=== PATIENT | female | born 1975 | race Caucasian/White ===

== ENCOUNTER 2017-02-23 15:18 | Emergency (ER) | payer OTHER ==
[2017-02-23 16:01] VITALS: BP 146/87; PULSE 103; TEMP 99.1; BMI 33.6
--- NOTE | 2017-02-23 16:02 | PDOC ---
Rapid Medical Evaluation Chief Complaint: Respiratory Time Seen by Provider: 02/23/17 16:00 Medical Evaluation: Allergies Allergy/AdvReac Type Severity Reaction Status Date / Time No Known Allergies Allergy Verified 04/24/15 10:03 02/23/17 16:00 I have performed a brief in-person evaluation of this patient. The patient presents with a chief complaint of non productive coughing, chest discomfort and shortness of breath since Thursday. Also report pain with swallowing. Took medication this am Pertinent physical exam findings: NAD unlabored breathing, lungs clear bilaterally rapid heart rate no pedal edema I have ordered the following: ekg chest xray flu swab labs The patient will proceed to the ED for further evaluation.
[2017-02-23 16:51] LABS: INR 1.05 (0.82-1.09); PROTHROMBIN TIME (PATIENT) 11.9 SEC (9.98-11.88)
[2017-02-23 16:54] LABS: ACTIVATED PTT 34.6 SECONDS (26.9-34.4)
[2017-02-23 16:57] LABS: ALBUMIN 4.1 g/dl (3.4-5.0); ANION GAP 11 (8-16); BLOOD UREA NITROGEN 12 mg/dL (7-18); CALCIUM 8.3 mg/dL (8.5-10.1); CHLORIDE 99 mmol/L (98-107); CO2 27 mmol/L (21-32); GLUCOSE,RANDOM 83 mg/dL (74-106); POTASSIUM 3.5 mmol/L (3.5-5.1); SODIUM 137 mmol/L (136-145)
[2017-02-23 17:02] LABS: ALK PHOS 116 U/L (45-117); BILIRUBIN,DIRECT < 0.2 mg/dL (0.0-0.2); BILIRUBIN,TOTAL 0.3 mg/dL (0.2-1.0); CREATININE 0.6 mg/dL (0.55-1.02); SGOT/AST 35 U/L (15-37); SGPT/ALT 51 U/L (12-78)
[2017-02-23] MEDS ORDERED: ACETAMINOPHEN 325 MG TABLET (FP) PO ONE (17:46)
--- NOTE | 2017-02-23 17:52 | PDOC ---
History of Present Illness - General Chief Complaint: Respiratory Stated Complaint: CHEST PAIN Time Seen by Provider: 02/23/17 16:00 History Source: Patient Exam Limitations: No Limitations - History of Present Illness Initial Comments: CHIEF COMPLAINT: 41 y/o tachycardic female with PMH HTN c/o body aches, fever, chills, sore throat and dry cough x 3 days. 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 She has been taking tylenol and motrin. He denies BIRD, neck pain, earache, CP, SOB, abd pain, n/v/ d. Vital signs on arrival are notable for pulse of 103 with temp of 99.1. REVIEW OF SYSTEMS: GENERAL/CONSTITUTIONAL: + fever/chills. +body aches. No weakness. No weight change. HEAD, EYES, EARS, NOSE AND THROAT: No change in vision. No ear pain or discharge. +sore throat CARDIOVASCULAR: No chest pain or shortness of breath. RESPIRATORY: +dry cough. No wheezing, or hemoptysis. GASTROINTESTINAL: No abd pain, nausea, vomiting, diarrhea. GENITOURINARY: No dysuria, frequency, or change in urination. MUSCULOSKELETAL: No joint or muscle swelling or pain. No neck or back pain. SKIN: No rash or easy bruising. NEUROLOGIC: No headache, vertigo, loss of consciousness, or loss of sensation. PHYSICAL EXAM: GENERAL: The patient is awake, alert, and fully oriented, non toxic but ill appearing. Intermittent dry cough. HEAD: Normal with no signs of trauma. ENT: Pupils equal, round and reactive to light, extraocular movements intact, sclera anicteric, conjunctiva clear. Posterior pharynx erythematous without tonsillar edema or exudate. LUNGS: Clear to auscultation bilaterally. Normal excursion. No respiratory distress or use of accessory muscles. CV: RRR, S1/S2, no MRG. Cap refill < 2 sec. ABDOMEN: Soft, non-distended, non-tender even to deep palpation, no hepatomegaly or splenomegaly, no masses. EXTREMITIES: Normal range of motion, no edema. NEUROLOGICAL: Normal speech, normal gait. CN II-XII grossly intact. PSYCH: Normal mood, normal affect. SKIN: Warm, dry, normal turgor, no rashes or lesions noted. Past History - Past Medical History Allergies/Adverse Reactions: Allergies Allergy/AdvReac Type Severity Reaction Status Date / Time No Known Allergies Allergy Verified 04/24/15 10:03 Home Medications: Ambulatory Orders Ibuprofen [Motrin -] 800 mg PO TID #30 tablet 04/24/15 Oseltamivir Phosphate [Tamiflu] 75 mg PO BID #10 capsule 02/23/17 - Suicide/Smoking/Psychosocial Hx Smoking History: Never smoked Hx Alcohol Use: No Drug/Substance Use Hx: No *Physical Exam - Vital Signs Last Vital Signs Temp Pulse Resp BP Pulse Ox 99.1 F 103 H 20 146/87 99 02/23/17 15:57 02/23/17 15:57 02/23/17 15:57 02/23/17 15:57 02/23/17 15:57 ED Treatment Course - LABORATORY CBC & Chemistry Diagram: 02/23/17 16:15 - ADDITIONAL ORDERS Additional order review: Laboratory Results 02/23/17 02/23/17 16:15 16:15 PT with INR 11.90 H INR 1.05 PTT (Actin FS) 34.6 H Sodium 137 Potassium 3.5 Chloride 99 Carbon Dioxide 27 Anion Gap 11 BUN 12 Creatinine 0.6 Creat Clearance w eGFR > 60 Random Glucose 83 Calcium 8.3 L Total Bilirubin 0.3 Direct Bilirubin < 0.2 AST 35 ALT 51 Alkaline Phosphatase 116 Creatine Kinase 124 Troponin I < 0.02 Total Protein 8.0 Albumin 4.1 02/23/17 16:15 Influenza Types A,B Antigen (LOUISE) - Final Nasopharyngeal Swab - Final Medical Decision Making - Medical Decision Making A/P: 41 y/o female with flu like symptoms. Flu swab, labs and EKG ordered in triage. I will give her tylenol. Flu B - positive Patient given results. Most likely tachycardic secondary to fever. Will give rx for tamiflu. encouraged plenty of fluids, continued tylenol and motrin for fever, tamiflu and rest. Will give work note. Instructed her to return to the ER with any worsening or concerning symptoms. The patient verbalizes understanding of all instructions, has no further questions and is awaiting discharge. *DC/Admit/Observation/Transfer Diagnosis at time of Disposition: Influenza B - Discharge Dispostion Disposition: HOME Condition at time of disposition: Stable - Prescriptions Prescriptions: Oseltamivir Phosphate [Tamiflu] 75 mg PO BID #10 capsule - Referrals Referrals: Candace Garrison [Primary Care Provider] - - Patient Instructions Printed Discharge Instructions: DI for Influenza -- Adult Additional Instructions: Discharge instructions: -You have Influenza B -A prescription for Tamiflu was sent to your pharmacy; please take entire 5 days -Alternate every 3 hours between 650mg of Tylenol and 600mg of Motrin for fever and body aches until symptoms improve -Drink plenty of liquids -Get lots of rest -Return to the ER with any worsening or concerning symptoms Instrucciones de descarga: -Tienes Influenza B - Lisette receta para Tamiflu fue enviada a avila farmacia; por favor tmate 5 perez enteros -Alterna cada 3 horas entre 650 mg de Tylenol y 600 mg de Motrin para la fiebre y los candi corporales hasta que mejoren los sntomas -Rosalba muchos lquidos -Descansa mucho -Volver a la shanell de urgencias con cualquier empeoramiento o sntomas - Post Discharge Activity Forms/Work/School Notes: Back to Work
[2017-02-23] MEDS ORDERED: ACETAMINOPHEN 325 MG TABLET (FP) ONE (18:24)
--- NOTE | 2017-02-24 10:51 | EKG ---
Test Reason : Blood Pressure : / mmHG Vent. Rate : 097 BPM Atrial Rate : 097 BPM P-R Int : 152 ms QRS Dur : 082 ms QT Int : 354 ms P-R-T Axes : 013 004 049 degrees QTc Int : 449 ms NORMAL SINUS RHYTHM NORMAL ECG NO PREVIOUS ECGS AVAILABLE Confirmed by MD Cummings Daniel ([id number]) on 02/24/2017 10:51:06 AM Referred By: Confirmed By:Maxim Cummings MD
== END 2017-02-23 18:22 | disposition home or self-care (01) ==
LOC: JER 15:18
DX: J10.1 Influenza due to other identified influenza virus with other respiratory manifestations (principal)
CPT/HCPCS: 36415; 80053; 80076; 82550; 84484; 85610; 85730; 87804; 93005; 93010; 99282-25

== ENCOUNTER 2018-01-05 23:09 | Emergency (ER) | payer OTHER ==
[2018-01-05 23:13] VITALS: BP 151/98; PULSE 77; TEMP 98.1; BMI 30.7
[2018-01-05 23:28] LABS: URINE APPEARANCE CLOUDY; URINE BILIRUBIN NEGATIVE (<2.0 mg/dL); URINE COLOR YELLOW; URINE GLUCOSE (UA) NEGATIVE (NEGATIVE); URINE KETONE NEGATIVE (NEGATIVE); URINE LEUK ESTERASE 3+ (NEGATIVE); URINE NITRITE NEGATIVE (NEGATIVE); URINE PROTEIN 2+ (NEGATIVE); URINE UROBILINOGEN NEGATIVE mg/dL (0.2-1.0)
[2018-01-05 23:43] LABS: EPI CELLS RARE /HPF (FEW); URINE BACTERIA RARE /hpf (NONE SEEN); URINE MUCUS RARE
[2018-01-06 00:17] LABS: HCG,QUALITATIVE URINE Negative
--- NOTE | 2018-01-06 01:23 | PDOC ---
History of Present Illness <Cara Andersen - Last Filed: 01/06/18 05:19> - History of Present Illness Initial Comments: 01/06/18 02:34 The patient is a a 42 year old female with a history of HTN who presents for evaluation of right flank pain and pain with urination. The patient reports a 1 week history of mild right flank pain. She notes a 3 day history of worsening burning pain with urination prompting her presentation to the ED for further evaluation. She otherwise denies fevers, chills, SOB, chest pain, nausea, vomiting, abdominal pain, or changes with bowel movements. <Maxim Estrada - Last Filed: 01/08/18 08:11> - General Chief Complaint: Urinary Problem Stated Complaint: PAIN Time Seen by Provider: 01/06/18 01:21 Past History <Cara Andersen - Last Filed: 01/06/18 05:19> - Suicide/Smoking/Psychosocial Hx Smoking History: Never smoked Have you smoked in the past 12 months: No Information on smoking cessation initiated: No Hx Alcohol Use: No Drug/Substance Use Hx: No <Maxim Estrada - Last Filed: 01/08/18 08:11> - Past Medical History Allergies/Adverse Reactions: Allergies Allergy/AdvReac Type Severity Reaction Status Date / Time No Known Allergies Allergy Verified 01/05/18 23:13 Home Medications: Ambulatory Orders Ibuprofen [Motrin -] 800 mg PO TID #30 tablet 04/24/15 Oseltamivir Phosphate [Tamiflu] 75 mg PO BID #10 capsule 02/23/17 Cephalexin Monohydrate [Keflex -] 500 mg PO BID #20 capsule 01/06/18 Review of Systems - Review of Systems Comments:: 01/06/18 02:39 Constitutional: No fevers, chills, fatigue, malaise HEENT: No Rhinorrhea, nasal congestion, visual changes Cardiovascular: No chest pain, syncope, palpitations, lightheadedness Respiratory: No Cough, SOB, Hemoptysis, Gastrointestinal: No Abdominal pain, Nausea, Vomiting, Constipation, Diarrhea, Melena Genitourinary: Dysuria, Flank pain. No Frequency, Urgency, Hesitancy, Hematuria , Musculoskeletal: No Myalgia, arthralgia Skin: No rashes, itching, bruising, pallor Neurologic: No Headache, Dizziness, Numbness, Weakness, or Tingling Psychiatric: No Hallucinations. No SI or HI <Maxim Estrada - Last Filed: 01/08/18 08:11> *Physical Exam - Vital Signs Last Vital Signs Temp Pulse Resp BP Pulse Ox 98.1 F 77 16 151/98 100 01/05/18 23:11 01/05/18 23:11 01/05/18 23:11 01/05/18 23:11 01/05/18 23:11 <Cara Andersen - Last Filed: 01/06/18 05:19> - Vital Signs Last Vital Signs Temp Pulse Resp BP Pulse Ox 98.1 F 77 16 151/98 100 01/05/18 23:11 01/05/18 23:11 01/05/18 23:11 01/05/18 23:11 01/05/18 23:11 - Physical Exam Comments: 01/06/18 02:39 General Appearance: Nourished. No Apparent Distress HEENT: No Pharyngeal Erythema, Tonsillar Exudate, Tonsillar Erythema Neck: No Cervical Lymphadenopathy Respiratory/Chest: Lungs Clear, Normal Breath Sounds. No Crackles, Rales, Rhonchi, Wheezing Cardiovascular: Regular Rhythm, Regular Rate. No Murmur, Gallops, Rubs Gastrointestinal/Abdominal: Normal Bowel Sounds, Soft. Mild suprapubic discomfort with palpation. No Guarding, Rebound, Musculoskeletal: Mild R CVA Tenderness. No L CVA Tenderness. Extremity: Normal Capillary Refill Integumentary: Normal Color, Dry, Warm Neurologic: Fully Oriented, Alert, Normal Mood/Affect, Normal Response, <Maxim Estrada - Last Filed: 01/08/18 08:11> Moderate Sedation - Procedure Monitoring Vital Signs: Procedure Monitoring Vital Signs Temperature 98.1 F 01/05/18 23:11 Pulse Rate 77 01/05/18 23:11 Respiratory Rate 16 01/05/18 23:11 Blood Pressure 151/98 01/05/18 23:11 O2 Sat by Pulse Oximetry (%) 100 01/05/18 23:11 <Cara Andersen - Last Filed: 01/06/18 05:19> - Procedure Monitoring Vital Signs: Procedure Monitoring Vital Signs Temperature 98.1 F 01/05/18 23:11 Pulse Rate 77 01/05/18 23:11 Respiratory Rate 16 01/05/18 23:11 Blood Pressure 151/98 01/05/18 23:11 O2 Sat by Pulse Oximetry (%) 100 01/05/18 23:11 <Maxim Estrada - Last Filed: 01/08/18 08:11> ED Treatment Course - LABORATORY CBC & Chemistry Diagram: 01/06/18 03:08 01/06/18 03:08 - ADDITIONAL ORDERS Additional order review: Laboratory Results 01/06/18 01/05/18 03:08 23:15 Sodium 137 Potassium 3.8 Chloride 100 Carbon Dioxide 29 Anion Gap 7 L BUN 25 H Creatinine 0.5 L Creat Clearance w eGFR > 60 Random Glucose 101 Calcium 9.3 Total Bilirubin 0.4 AST 21 ALT 29 Alkaline Phosphatase 133 H Total Protein 7.8 Albumin 3.9 Urine Color Yellow Urine Appearance Cloudy Urine pH 6.0 Ur Specific [place] 1.025 Urine Protein 2+ H Urine Glucose (UA) Negative Urine Ketones Negative Urine Blood 3+ H Urine Nitrite Negative Urine Bilirubin Negative Urine Urobilinogen Negative Ur Leukocyte Esterase 3+ H Urine WBC (Auto) 308 Urine RBC (Auto) 1242 Ur Epithelial Cells Rare Urine Bacteria Rare Urine Mucus Rare Urine HCG, Qual Negative 01/06/18 03:08 RBC 4.55 MCV 87.6 MCHC 35.6 RDW 12.7 MPV 7.7 Neutrophils % 59.1 Lymphocytes % 31.9 Monocytes % 6.6 Eosinophils % 1.8 Basophils % 0.6 - Medications Given in the ED: ED Medications Discontinued Medications Generic Name Dose Route Start Last Admin Trade Name Freq PRN Reason Stop Dose Admin Ceftriaxone Sodium 1 gm/ 100 mls @ 200 mls/hr 01/06/18 02:34 01/06/18 03:19 Dextrose IVPB 01/06/18 03:03 200 mls/hr ONCE ONE Administration Protocol <Cara Andersen - Last Filed: 01/06/18 05:19> - LABORATORY CBC & Chemistry Diagram: 01/06/18 03:08 01/06/18 03:08 - ADDITIONAL ORDERS Additional order review: Laboratory Results 01/05/18 23:15 Urine Color Yellow Urine Appearance Cloudy Urine pH 6.0 Ur Specific [place] 1.025 Urine Protein 2+ H Urine Glucose (UA) Negative Urine Ketones Negative Urine Blood 3+ H Urine Nitrite Negative Urine Bilirubin Negative Urine Urobilinogen Negative Ur Leukocyte Esterase 3+ H Urine WBC (Auto) 308 Urine RBC (Auto) 1242 Ur Epithelial Cells Rare Urine Bacteria Rare Urine Mucus Rare Urine HCG, Qual Negative <Maxim Estrada - Last Filed: 01/08/18 08:11> Medical Decision Making - Medical Decision Making 01/06/18 02:40 The patient is a a 42 year old female with a history of HTN who presents for evaluation of right flank pain and pain with urination. Differential includes but is not limited to: Pyelonephritis, UTI, Kidney stone, Infectious, Metabolic Derangement. Given the patient's history and physical exam, we will obtain a cbc, cmp, renal CT to evaluate further. UA obtained in triage demonstrated positive leuk esterase with elevated wbc and rbcs. We will treat the patient with ceftriaxone and continue to monitor and reassess while here in the ED. 01/06/18 04:10 CBC, cmp are unremarkable. Renal CT demonstrates cystitis without kidney stones as preliminarily read by our [facility] receptionist radiologist. The patient appears clinically well on exam. We are comfortable discharging the patient home on keflex with primary care provider follow up. We discussed the results, plan, and return precautions with the patient who voiced understanding and is agreeable with the plan. <Maxim Estrada - Last Filed: 01/08/18 08:11> *DC/Admit/Observation/Transfer <Cara Andersen - Last Filed: 01/06/18 05:19> - Discharge Dispostion Decision to Admit order: No <Maxim Estrada - Last Filed: 01/08/18 08:11> Diagnosis at time of Disposition: UTI (urinary tract infection) Qualifiers: Urinary tract infection type: site unspecified Hematuria presence: with hematuria Qualified Code(s): N39.0 - Urinary tract infection, site not specified - Discharge Dispostion Disposition: HOME Condition at time of disposition: Stable - Prescriptions Prescriptions: Cephalexin Monohydrate [Keflex -] 500 mg PO BID #20 capsule - Referrals Referrals: Candace Garrison [Primary Care Provider] - - Patient Instructions Printed Discharge Instructions: DI for Urinary Tract Infection (UTI) Additional Instructions: Please return to the ER if you experience concerning or worsening symptoms including worsening difficulty breathing, weakness, or chest pain, fever, abdominal pain, vomiting. Your lab results and CT scan show that you have a urinary tract infection. We have sent a prescription for antibiotics to your pharmacy that you should take twice a day for 10 days. Please call to schedule a follow up appointment with your primary care provider within 2-3 days to discuss your ER visit and further management of your symptoms. - Post Discharge Activity
[2018-01-06] MEDS ORDERED: CEFTRIAXONE 1 GM in DEXTROSE 5%-WATER - 100 ML IVPB ONE (02:34)
[2018-01-06] MEDS ORDERED: CEFTRIAXONE 1 GM/50 ML BAG ONE (03:14)
[2018-01-06 03:18] LABS: BASO % 0.6 % (0-2.0); EOS % 1.8 % (0-4.5); HEMATOCRIT 39.9 % (32.4-45.2); HEMOGLOBIN 14.2 GM/dL (10.7-15.3); LYMPH % 31.9 % (8-40); MCH 31.2 pg (25.7-33.7); MCHC 35.6 g/dl (32.0-36.0); MEAN CELL VOLUME 87.6 fl (80-96); MEAN PLT VOLUME 7.7 fl (7.5-11.1); MONO % 6.6 % (3.8-10.2); NEUT % 59.1 % (42.8-82.8); PLATELET COUNT 333 K/MM3 (134-434); RBC 4.55 M/mm3 (3.60-5.2); RDW 12.7 % (11.6-15.6); WHITE BLOOD COUNT 9.8 K/mm3 (4.0-10.0)
[2018-01-06 03:52] LABS: ALBUMIN 3.9 g/dl (3.4-5.0); ALK PHOS 133 U/L (45-117); ANION GAP 7 MMOL/L (8-16); BILIRUBIN,TOTAL 0.4 mg/dL (0.2-1); BLOOD UREA NITROGEN 25 mg/dL (7-18); CALCIUM 9.3 mg/dL (8.5-10.1); CHLORIDE 100 mmol/L (98-107); CO2 29 mmol/L (21-32); CREATININE 0.5 mg/dL (0.55-1.3); GLUCOSE,RANDOM 101 mg/dL (74-106); POTASSIUM 3.8 mmol/L (3.5-5.1); SGOT/AST 21 U/L (15-37); SGPT/ALT 29 U/L (13-61); SODIUM 137 mmol/L (136-145); TOT PROT 7.8 g/dl (6.4-8.2)
--- NOTE | 2018-01-06 05:24 | PDOC ---
Attending Attestation - Resident Resident Name: NatalieMaxim - ED Attending Attestation I have performed the following: I have examined & evaluated the patient, The case was reviewed & discussed with the resident, I agree w/resident's findings & plan, Exceptions are as noted - HPI HPI: 01/06/18 05:20 42 yo F with h/o Htn here with /co pain with urination flank pain. no f/c no n/ v started 3 days ago. no hematuria. also c/o flank pain after urination. no h/o renal colic or stones. no h/;o frequent uti. pcp is dr. daigle. - Physicial Exam PE: 01/06/18 05:21 awake alert lungs clear bilateraly heart rrr no abd soft mild suprapubic ttp, mild cva ttp.ext wwp no edema. no calf tenderness. - Medical Decision Making 01/06/18 05:22 42 yo F with uti sxs. differenti inclues stone, pyelo, cystitis. plan ct a/p labs ua cultures. pt not septic appearing, no f/c normal wbc count. ct with no stone, only sx of cystitis. will dc on keflex . wll follow up with pcp.
== END 2018-01-06 06:08 | disposition home or self-care (01) ==
LOC: JER 23:09
DX: N39.0 Urinary tract infection, site not specified (principal); I10 Essential (primary) hypertension
CPT/HCPCS: 36415; 74176; 80053; 81003; 81015; 84703; 85025; 87086; 87186; 96365; 99282-25

== ENCOUNTER 2020-07-07 23:17 | Emergency (ER) | payer OTHER ==
[2020-07-07 23:25] VITALS: TEMP 98.5; BMI 30.7
[2020-07-07] MEDS ORDERED: amLODIPine BESYLATE 2.5 MG TABLET (FP) PO ONE (23:53)
[2020-07-08 00:04] LABS: EOS % 2.8 % (0-4.5); HEMOGLOBIN 14.2 GM/dL (10.7-15.3); LYMPH % 37.3 % (8-40); MCH 29.7 pg (25.7-33.7); MCHC 33.8 g/dl (32.0-36.0); MEAN PLT VOLUME 8.5 fl (7.5-11.1); MONO % 5.4 % (3.8-10.2); NEUT % 53.5 % (42.8-82.8); PLATELET COUNT 291 K/MM3 (134-434); RBC 4.77 M/mm3 (3.60-5.2); RDW 12.6 % (11.6-15.6); WHITE BLOOD COUNT 8.5 K/mm3 (4.0-10.0)
[2020-07-08] MEDS ORDERED: amLODIPine BESYLATE 2.5 MG TABLET (FP) ONE (00:22)
[2020-07-08 00:32] LABS: ALBUMIN 4.2 g/dl (3.4-5.0); BLOOD UREA NITROGEN 15.4 mg/dL (7-18); CALCIUM 8.9 mg/dL (8.5-10.1)
[2020-07-08 00:36] LABS: CREATININE 0.6 mg/dL (0.55-1.3)
[2020-07-08 00:37] LABS: BILIRUBIN,TOTAL 0.4 mg/dL (0.2-1); TOT PROT 7.9 g/dl (6.4-8.2)
[2020-07-08 02:09] VITALS: BP 133/80; PULSE 74
== END 2020-07-08 02:09 | disposition home or self-care (01) ==
LOC: JER 23:17
DX: I10 Essential (primary) hypertension (principal)
CPT/HCPCS: 36415; 70450-TC; 71046-TC-FY; 80053; 82550; 84484; 85025; 93005; 93010; 99285-25